=== PATIENT | female | born 1955 | race Caucasian/White ===

== ENCOUNTER 2017-07-18 04:39 | Observation (INO) | payer BC ==
[2017-07-18] MEDS ORDERED: Aspirin 81 MG Tab.Chew PO ONE (05:11)
--- NOTE | 2017-07-18 05:11 | EDM.PDOC ---
ED HPI GENERAL MEDICAL PROBLEM - General Chief Complaint: Chest Pain Stated Complaint: CHEST PAINS Time Seen by Provider: 07/18/17 05:08 - History of Present Illness INITIAL COMMENTS - FREE TEXT/NARRATIVE: HISTORY AND PHYSICAL: History of present illness: Patient's a 62-year-old female with history of hypertension diabetes who presents with concern of chest pain since vaguely described the last approximately 1 hour she equivocates regarding associated shortness of breath she denies palpitations diaphoresis nausea or vomiting. Review of systems: As per history of present illness and below otherwise all systems reviewed and negative. Past medical history: As per history of present illness and as reviewed below otherwise noncontributory. Surgical history: As per history of present illness and as reviewed below otherwise noncontributory. Social history: No reported history of drug or alcohol abuse. Family history: As per history of present illness and as reviewed below otherwise noncontributory. Physical exam: HEENT: Atraumatic, normocephalic, pupils reactive, negative for conjunctival pallor or scleral icterus, mucous membranes moist, throat clear, neck supple, nontender, trachea midline. Lungs: Clear to auscultation, breath sounds equal bilaterally, chest nontender. Heart: S1S2, regular, negative for clicks, rubs, or JVD. Abdomen: Soft, nondistended, nontender. Negative for masses or hepatosplenomegaly. Negative for costovertebral tenderness. Pelvis: Stable nontender. Genitourinary: Deferred. Rectal: Deferred. Extremities: Atraumatic, negative for cords or calf pain. Neurovascular unremarkable. Neuro: Awake, alert, oriented. Cranial nerves II through XII unremarkable. Cerebellum unremarkable. Motor and sensory unremarkable throughout. Exam nonfocal. Diagnostics: CBC CMP troponin PT/INR chest x-ray EKG Therapeutics: IV O2 monitor aspirin 324 mg by mouth Impression: #1 chest pain #2 history diabetes #3 history of hypertension Definitive disposition and diagnosis as appropriate pending reevaluation and review of above. chest Pain Score (Numeric/FACES): 8 - Related Data Allergies Allergy/AdvReac Type Severity Reaction Status Date / Time esomeprazole magnesium Allergy Headache Verified 07/18/17 04:52 [From Nexium] Home Meds: Home Meds Hydrochlorothiazide/Lisinopril [Lisinopril-HCTZ 10-12.5 MG] 1 tab PO DAILY 12/08 [History] Sertraline [Zoloft] 50 mg PO DAILY 12/08/13 [History] metFORMIN [Glucophage] 500 mg PO BIDAC 12/08/13 [History] Acetaminophen/Diphenhydramine [Tylenol Pm Ex-Strength Caplet] 1 each PO ASDIRECTED 10/18/15 [History] Aspirin [Halfprin] 81 mg PO BRK 10/18/15 [History] Calcium Carbonate [Calcium] 600 mg PO BID 10/18/15 [History] Ergocalciferol (Vitamin D2) [Vitamin D] 400 unit PO BID 10/18/15 [History] Lansoprazole [Prevacid] 15 mg PO BID 10/18/15 [History] Losartan Potassium 25 mg PO DAILY 10/18/15 [History] atorvaSTATin [Lipitor] 10 mg PO BEDTIME 10/18/15 [History] Past Medical History - Past Health History Medical/Surgical History: Denies Medical/Surgical History HEENT History: Reports: None Cardiovascular History: Reports: High Cholesterol, Hypertension Respiratory History: Reports: Sleep Apnea Gastrointestinal History: Reports: GERD 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 History: Reports: None Endocrine/Metabolic History: Reports: Diabetes, Type II, Obesity/BMI 30+ Dermatologic History: Reports: None - Infectious Disease History Infectious Disease History: Reports: Chicken Pox - Past Surgical History HEENT Surgical History: Reports: Oral Surgery, Tonsillectomy GI Surgical History: Reports: Appendectomy, Cholecystectomy Female Surgical History: Reports: Section, Hysterectomy Musculoskeletal Surgical History: Reports: Arthroscopic Knee, Joint Replacement , Shoulder Surgery Dermatological Surgical History: Reports: Plastic Surgical Reconstruction/Repair Social & Family History - Family History Family Medical History: Noncontributory - Tobacco Use Smoking Status *Q: Never Smoker - Alcohol Use Days Per Week of Alcohol Use: 0 - Recreational Drug Use Recreational Drug Use: No ED ROS GENERAL - Review of Systems Review Of Systems: ROS reveals no pertinent complaints other than HPI. ED EXAM, GENERAL - Physical Exam Exam: See Below (See dictated) Course - Vital Signs Last Recorded V/S: Last Vital Signs Temp 36.6 C 07/18/17 04:39 Pulse 92 07/18/17 04:39 Resp 20 07/18/17 04:39 BP 158/96 H 07/18/17 04:39 Pulse Ox 96 07/18/17 04:39 - Orders/Labs/Meds Orders: Active Orders 24 hr Category Date Time Status EKG Documentation Completion [RC] STAT Care 07/18/17 04:45 Active Chest 1V Frontal [CR] Stat Exams 07/18/17 04:45 Ordered COMPREHENSIVE METABOLIC PN,CMP [CHEM] Stat Lab 07/18/17 04:50 Received INR,PT,PROTHROMBIN TIME [COAG] Stat Lab 07/18/17 04:50 Received TROPONIN I [CHEM] Stat Lab 07/18/17 04:50 Received Labs: Laboratory Tests 07/18/17 Range/Units 04:50 WBC 9.58 (4.0-11.0) K/uL RBC 4.43 (4.30-5.90) M/uL Hgb 12.6 (12.0-16.0) g/dL Hct 37.9 (36.0-46.0) % MCV 85.6 (80.0-98.0) fL MCH 28.4 (27.0-32.0) pg MCHC 33.2 (31.0-37.0) g/dL RDW Std Deviation 42.4 (28.0-62.0) fl RDW Coeff of Yvonne 14 (11.0-15.0) % Plt Count 284 (150-400) K/uL MPV 10.10 (7.40-12.00) fL Neut % (Auto) 47.8 L (48.0-80.0) % Lymph % (Auto) 38.0 (16.0-40.0) % Webb % (Auto) 9.0 (0.0-15.0) % Eos % (Auto) 4.6 (0.0-7.0) % Baso % (Auto) 0.6 (0.0-1.5) % Neut # (Auto) 4.6 (1.4-5.7) K/uL Lymph # (Auto) 3.6 H (0.6-2.4) K/uL Webb # (Auto) 0.9 H (0.0-0.8) K/uL Eos # (Auto) 0.4 (0.0-0.7) K/uL Baso # (Auto) 0.1 (0.0-0.1) K/uL Nucleated RBC % 0.0 /100WBC Nucleated RBCs # 0 K/uL Departure - Departure Time of Disposition: 05:09 Disposition: Refer to Observation Condition: Good Clinical Impression: Chest pain, Diabetes, Hypertension - Discharge Information - My Orders Last 24 Hours: My Active Orders 07/18/17 04:45 EKG Documentation Completion [RC] STAT Chest 1V Frontal [CR] Stat 07/18/17 04:50 COMPREHENSIVE METABOLIC PN,CMP [CHEM] Stat INR,PT,PROTHROMBIN TIME [COAG] Stat TROPONIN I [CHEM] Stat - Assessment/Plan Last 24 Hours: My Active Orders 07/18/17 04:45 EKG Documentation Completion [RC] STAT Chest 1V Frontal [CR] Stat 07/18/17 04:50 COMPREHENSIVE METABOLIC PN,CMP [CHEM] Stat INR,PT,PROTHROMBIN TIME [COAG] Stat TROPONIN I [CHEM] Stat
[2017-07-18 05:25] LABS: CHLORIDE,CL 106 mmol/L (98-110); SODIUM,NA 140 mmol/L (136-146)
[2017-07-18] MEDS: Insulin Aspart 100 Units/ML 3 ML Pen SUBCUT SCH ×3 (06:41→17:38)
[2017-07-18] MEDS ORDERED: Lisinopril 10 MG Tab PO SCH (09:00)
[2017-07-18] MEDS ORDERED: Hydrochlorothiazide 12.5 MG Cap PO SCH (09:00)
[2017-07-18] MEDS ORDERED: Losartan 50 MG Tab PO SCH (09:00)
[2017-07-18] MEDS ORDERED: Sertraline 50 MG Tab PO SCH (09:00)
--- NOTE | 2017-07-18 11:15 | PCM.HP ---
<Mc Rey Z - Last Filed: 07/20/17 09:42> H&P History of Present Illness - General Date of Service: 07/18/17 Admit Problem/Dx: Admission Diagnosis/Problem Admission Diagnosis/Problem Chest pain - History of Present Illness Initial Comments - Free Text/Narative: 62 year old female presenting with 2 week history of chest discomfort/pain along with diaphoresis. Patient states symptoms start 2 weeks back when she was in [employer] with her son and ended up having chest pressure and discomfort after walking around, she became diaphoretic and needed to sit. This episode lasted 30 mins and went away. Patient then had another episode last week at [employer] when helping out, again similar pain/discomfort and length of symptoms. Then last night patient stated she was watching her sons dog and at 3 am the dog woke her up to go outside and patient at that point experience chest pressure, diaphoresis that last between 45min to 1 hour. Patient does have a significant pmh of a previous IA based upon her EKG. Pt states there was an episode of chest pain discomfort more then 7 years ago for which she went into the ED but was released without an diagnosis of IA. Discharge Summary Date of admission: 07/18/2017 Date of discharge: 07/18/2017 Admitting diagnosis: #1. Chest pain/pressure, diaphoresis secondary to ACS rule out #2. Past medical history of IA appreciated on EKG #3. #4. #5. Discharge diagnoses: #1. ACS ruled out likely stable angina #2. Past medical history of IA appreciated on EKG #3. #4. #5. Consultations: None Procedures: None Hospitalization course: Patient was admitted to observation secondary to ACS rule out, troponins were drawn 3 all of which were negative, patient's labs were within normal limit. Patient did not have any further chest pain or discomfort during her observation stay. And once troponins 3 were all negative patient was discharged with instructions to follow-up with her primary care physician, as well as given a prescription for a cardiac stress test to be done with cardiology here in [place]. Patient has an appointment with cardiology on 23 July. Disposition on discharge: Home Condition on discharge: Stable Discharge medications: Continuation of home medication Follow-up instructions: Cardiac stress test outpatient, follow-up with primary care physician. chest Pain Score (Numeric/FACES): 8 - Related Data Allergies/Adverse Reactions: Allergies Allergy/AdvReac Type Severity Reaction Status Date / Time esomeprazole magnesium Allergy Headache Verified 07/18/17 04:52 [From Nexium] Home Medications: Home Meds Hydrochlorothiazide/Lisinopril [Lisinopril/HCTZ 10-12.5 MG] 12.5 mg PO DAILY 03/14 [History] Sertraline [Zoloft] 50 mg PO DAILY 12/08/13 [History] metFORMIN [Glucophage] 1,000 mg PO BIDAC 12/08/13 [History] Acetaminophen/Diphenhydramine [Tylenol Pm Ex-Strength Caplet] 1 each PO ASDIRECTED 10/18/15 [History] Aspirin [Halfprin] 81 mg PO DAILY 10/18/15 [History] Calcium Carbonate [Calcium] 600 mg PO BID 10/18/15 [History] Ergocalciferol (Vitamin D2) [Vitamin D] 400 unit PO BID 10/18/15 [History] Lansoprazole [Prevacid] 15 mg PO BID 10/18/15 [History] Losartan Potassium 25 mg PO DAILY 10/18/15 [History] atorvaSTATin [Lipitor] 10 mg PO BEDTIME 10/18/15 [History] Past Medical History - Past Health History Medical/Surgical History: Denies Medical/Surgical History HEENT History: Reports: None Cardiovascular History: Reports: High Cholesterol, Hypertension Respiratory History: Reports: Sleep Apnea Gastrointestinal History: Reports: GERD 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 History: Reports: None Endocrine/Metabolic History: Reports: Diabetes, Type II, Obesity/BMI 30+ Dermatologic History: Reports: None - Infectious Disease History Infectious Disease History: Reports: Chicken Pox - Past Surgical History HEENT Surgical History: Reports: Oral Surgery, Tonsillectomy GI Surgical History: Reports: Appendectomy, Cholecystectomy Female Surgical History: Reports: Section, Hysterectomy Musculoskeletal Surgical History: Reports: Arthroscopic Knee, Joint Replacement , Shoulder Surgery Other Musculoskeletal Surgeries/Procedures:: Left Knee Dermatological Surgical History: Reports: Plastic Surgical Reconstruction/Repair Social & Family History - Family History Family Medical History: Noncontributory - Tobacco Use Smoking Status *Q: Never Smoker - Caffeine Use Caffeine Use: Reports: Coffee - Alcohol Use Days Per Week of Alcohol Use: 0 - Recreational Drug Use Recreational Drug Use: No H&P Review of Systems - Review of Systems: Review Of Systems: ROS reveals no pertinent complaints other than HPI. Exam - Exam Exam: See Below - Vital Signs Vital Signs: Last Vital Signs Temp 37.1 C 07/18/17 05:57 Pulse 85 07/18/17 05:57 Resp 20 07/18/17 05:57 BP 135/79 07/18/17 08:55 Pulse Ox 96 07/18/17 05:57 Weight: 127.369 kg - Exam Quality Assessment: Supplemental Oxygen General: Alert, Oriented, Cooperative HEENT: Conjunctiva Clear Neck: Supple Lungs: Clear to Auscultation Cardiovascular: Regular Rate, Regular Rhythm GI/Abdominal Exam: Normal Bowel Sounds Extremities: Normal Inspection, No Pedal Edema - Patient Data Result Diagrams: 07/18/17 04:50 07/18/17 04:50 *Q Meaningful Use (ADM) - VTE *Q VTE Criteria *Q: - Stroke *Q Stroke Criteria *Q: - AMI *Q AMI Criteria *Q: Problem List Initiated/Reviewed/Updated: Yes Orders Last 24hrs: Active Orders 24 hr Category Date Time Status Blood Glucose Check, Bedside [RC] TIDAC Care 07/18/17 06:26 Active Telemetry Monitoring [Cardiac Monitoring] [RC] Q8H Care 07/18/17 05:45 Active ADA Diabetic [[place] [employer] Diet] [DIET Diet 07/18/17 Breakfast Active ] TROPONIN I [CHEM] Q6H Lab 07/18/17 10:58 Received TROPONIN I [CHEM] Q6H Lab 07/18/17 16:50 Ordered Hydrochlorothiazide Med 07/18/17 09:00 Active 12.5 mg PO DAILY Insulin Aspart [NovoLOG] Med 07/18/17 07:30 Active See Protocol SUBCUT TIDAC Lisinopril [Prinivil] Med 07/18/17 09:00 Active 10 mg PO DAILY Losartan [Cozaar] Med 07/18/17 09:00 Active 25 mg PO DAILY Sertraline [Zoloft] Med 07/18/17 09:00 Active 50 mg PO DAILY atorvaSTATin [Lipitor] Med 07/18/17 21:00 Active 10 mg PO BEDTIME Medication Orders Atorvastatin Calcium (Lipitor) 10 mg PO BEDTIME NINO Hydrochlorothiazide (Hydrochlorothiazide) 12.5 mg PO DAILY NINO Last Admin: 07/18/17 08:55 Dose: 12.5 mg Insulin Aspart (Novolog) 0 unit SUBCUT TIDAC [facility] PRN Reason: Protocol Last Admin: 07/18/17 06:41 Dose: Not Given Lisinopril (Prinivil) 10 mg PO DAILY [facility] Last Admin: 07/18/17 08:55 Dose: 10 mg Losartan Potassium (Cozaar) 25 mg PO DAILY [facility] Last Admin: 07/18/17 08:55 Dose: 25 mg Sertraline HCl (Zoloft) 50 mg PO DAILY [facility] Last Admin: 07/18/17 08:56 Dose: 50 mg Assessment/Plan Comment:: 62 year old female presenting with typical chest pain and diaphoresis with pmh of IA seen on EKG, ACS rule out - Trops x3, CBC, CMP, Cardiac monitoring. <Isiah Kaufman - Last Filed: 07/22/17 07:32> H&P History of Present Illness - General Admit Problem/Dx: Admission Diagnosis/Problem Admission Diagnosis/Problem Chest pain Exam - Vital Signs Vital Signs: Last Vital Signs Temp 36.8 C 07/18/17 16:00 Pulse 96 07/18/17 16:00 Resp 20 07/18/17 16:00 BP 112/71 07/18/17 16:00 Pulse Ox 94 L 07/18/17 16:00 - Patient Data Result Diagrams: 07/18/17 04:50 07/18/17 04:50 *Q Meaningful Use (ADM) - VTE *Q VTE Criteria *Q: - Stroke *Q Stroke Criteria *Q: - AMI *Q AMI Criteria *Q: - Free Text/Narrative Note: I have examined the patient. I have discussed findings and treatment plan with the resident. I agree with the assessment and plan outlined in the following resident's note.
[2017-07-18] MEDS ORDERED: Acetaminophen 325 MG Tab PO ONE (16:50)
[2017-07-18 16:54] VITALS: BP 112/71
[2017-07-18] MEDS ORDERED: atorvaSTATin 10 MG Tab PO SCH (21:00)
--- NOTE | 2017-07-20 16:53 | CR ---
EXAM DATE: 07/18/17 PATIENT'S AGE: 62 Patient: EDEN VEGA Facility: [place], [place] Site . Site : [id number] Study: XRay Chest [id number] 5:10:50 AM Ordering Physician: Doctor Calvillo Final Report: INDICATION: Chest pain TECHNIQUE: Chest radiograph 1 view COMPARISON: 07/14/2016 FINDINGS: Moderate degradation of image quality noted due to body habitus. Mediastinum: The heart silhouette is normal in size and morphology. A moderate- sized gastric hernias present without interval change. Lungs: Both lungs are unremarkable in appearance. No sign of pleural effusion seen. No pneumothorax is identified. Bones and soft tissue: Suture anchors are noted in the left humeral head. IMPRESSION: 1. No acute cardiopulmonary disease is seen. Dictated by Víctor Herzog MD @ 07/18/2017 5:14:54 AM Dictated by: Víctor Herzog MD @ 07/18/2017 05:14:59 (Electronic Signature) Report Signed by Proxy. [facility]
== END 2017-07-18 18:33 | disposition home or self-care (01) ==
LOC: MW.ED 04:39 → MW.MS 05:11
PROVIDERS: ADMIT Internal Medicine; ATTEND Internal Medicine
DX: R07.89 Other chest pain (principal); R61 Generalized hyperhidrosis; I25.2 Old myocardial infarction; E78.00 Pure hypercholesterolemia, unspecified; I10 Essential (primary) hypertension; G47.30 Sleep apnea, unspecified; K21.9 Gastro-esophageal reflux disease without esophagitis; E11.9 Type 2 diabetes mellitus without complications; E66.9 Obesity, unspecified; Z68.30 Body mass index [BMI] 30.0-30.9, adult; Z88.8 Allergy status to other drugs, medicaments and biological substances; Z79.899 Other long term (current) drug therapy; Z79.84 Long term (current) use of oral hypoglycemic drugs; Z79.82 Long term (current) use of aspirin; Z90.89 Acquired absence of other organs; Z90.49 Acquired absence of other specified parts of digestive tract; Z90.710 Acquired absence of both cervix and uterus; Z96.652 Presence of left artificial knee joint
CPT/HCPCS: 71045; 80053; 82962; 84484; 85025; 85610; 93005; 99285; A9270; G0378

== ENCOUNTER 2017-07-23 10:42 | Emergency (ER) | payer BC ==
[2017-07-23] MEDS ORDERED: Sodium Chloride 0.9% 2.5 ML Syringe FLUSH PRN (10:47)
[2017-07-23] MEDS ORDERED: Sodium Chloride 0.9% 10 ML Syringe FLUSH PRN (10:47)
[2017-07-23] MEDS ORDERED: Aspirin 81 MG Tab.Chew PO ONE (10:49)
[2017-07-23] MEDS ORDERED: Nitroglycerin 0.4 MG Tab.SL SL PRN (10:49)
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
[2017-07-23] MEDS ORDERED: Nitroglycerin 2% Oint 1 GM UD Packet TOP ONE (10:51)
[2017-07-23 10:54] VITALS: BP 128/72
[2017-07-23 11:25] LABS: CHLORIDE,CL 106 mmol/L (98-110); SODIUM,NA 139 mmol/L (136-146)
--- NOTE | 2017-07-23 11:31 | CR ---
EXAMINATION: Portable chest radiograph. HISTORY: Chest pain. FINDINGS: The trachea is midline. The cardiomediastinal silhouette is within normal limits. No pulmonary infilt rates, effusions or pneumothorax. Moderate hiatal hernia. Osseous structures appear unremarkable. IMPRESSION: No acute cardiopulmonary process.
== END 2017-07-23 11:53 | disposition other institution (70) ==
LOC: MW.ED 10:42
DX: I20.0 Unstable angina (principal); E78.00 Pure hypercholesterolemia, unspecified; I10 Essential (primary) hypertension; E11.9 Type 2 diabetes mellitus without complications; Z88.8 Allergy status to other drugs, medicaments and biological substances; Z79.899 Other long term (current) drug therapy; Z79.82 Long term (current) use of aspirin; Z79.84 Long term (current) use of oral hypoglycemic drugs
CPT/HCPCS: 36415; 71045; 80053; 84484; 85025; 93005; 99285; A9270

== ENCOUNTER 2018-12-17 17:41 | Emergency (ER) | payer BC ==
[2018-12-17] MEDS ORDERED: Morphine 2 MG/ML Syringe IVPUSH ONE (17:43)
[2018-12-17] MEDS ORDERED: Sodium Chloride 0.9% 1,000 ML IV ONE (17:43)
[2018-12-17] MEDS ORDERED: Ondansetron 4 MG/2 ML SDV IVPUSH ONE (17:43)
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
[2018-12-17 18:58] VITALS: BP 125/89
[2018-12-17 19:07] LABS: CHLORIDE,CL 99 mmol/L (98-107); SODIUM,NA 136 mmol/L (136-145)
== END 2018-12-17 19:53 | disposition home or self-care (01) ==
LOC: MW.ED 17:41
DX: S80.11XA Contusion of right lower leg, initial encounter (principal); E87.6 Hypokalemia; I10 Essential (primary) hypertension; I25.2 Old myocardial infarction; J44.9 Chronic obstructive pulmonary disease, unspecified; F41.9 Anxiety disorder, unspecified; F32.9 Major depressive disorder, single episode, unspecified; E11.9 Type 2 diabetes mellitus without complications; Z79.82 Long term (current) use of aspirin; Z79.899 Other long term (current) drug therapy; Z88.8 Allergy status to other drugs, medicaments and biological substances; V89.2XXA Person injured in unspecified motor-vehicle accident, traffic, initial encounter
CPT/HCPCS: 36415; 70450; 71045; 72125; 72170; 73590; 73610; 80053; 85025; 85610; 96361; 96374; 96375; 99285; J2270; J2405; J7040; 99284

== ENCOUNTER 2019-01-04 13:21 | Emergency (ER) | payer BC, OTHER ==
[2019-01-04 14:29] LABS: BLOOD UREA NITROGEN,BUN 25 mg/dL (7.0-18.0); CARBON DIOXIDE,CO2 19.8 mmol/L (21.0-32.0); CHLORIDE,CL 106 mmol/L (98-107); GLUCOSE RANDOM 115 mg/dL (74-106); POTASSIUM,K 3.9 mmol/L (3.5-5.1); SODIUM,NA 142 mmol/L (136-145)
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
[2019-01-04 17:29] VITALS: BP 140/114; PULSE 92
== END 2019-01-04 17:27 | disposition home or self-care (01) ==
LOC: MW.ED 13:21
DX: R06.02 Shortness of breath (principal); I10 Essential (primary) hypertension; I25.2 Old myocardial infarction; K21.9 Gastro-esophageal reflux disease without esophagitis; M19.90 Unspecified osteoarthritis, unspecified site; F32.9 Major depressive disorder, single episode, unspecified; F41.9 Anxiety disorder, unspecified; E11.42 Type 2 diabetes mellitus with diabetic polyneuropathy; E66.9 Obesity, unspecified; Z68.39 Body mass index [BMI] 39.0-39.9, adult; Z88.3 Allergy status to other anti-infective agents; Z88.8 Allergy status to other drugs, medicaments and biological substances; Z79.82 Long term (current) use of aspirin; Z79.84 Long term (current) use of oral hypoglycemic drugs; Z79.899 Other long term (current) drug therapy
CPT/HCPCS: 36415; 71275; 71275-26; 80053; 85025; 85379; 93005; 99282; 99285-25

== ENCOUNTER 2019-03-19 17:33 | Emergency (ER) | payer BC ==
[2019-03-19] MEDS ORDERED: Sodium Chloride 0.9% 2.5 ML Syringe FLUSH PRN (17:48)
[2019-03-19] MEDS ORDERED: Sodium Chloride 0.9% 1,000 ML IV ONE (17:48)
[2019-03-19] MEDS ORDERED: Sodium Chloride 0.9% 10 ML Syringe FLUSH PRN (17:48)
--- NOTE | 2019-03-19 17:49 | EDM.PDOC ---
ED HPI GENERAL MEDICAL PROBLEM - General Chief Complaint: General Stated Complaint: SPOKE W/ NURSE Time Seen by Provider: 03/19/19 17:49 Source of Information: Reports: Patient History Limitations: Reports: No Limitations - History of Present Illness INITIAL COMMENTS - FREE TEXT/NARRATIVE: HISTORY AND PHYSICAL: History of present illness: Patient is a 64-year-old female presents to the ED with complaint of headache and dizziness. She states she had a left knee replacement in [place] 2 days ago. She was discharged yesterday and told she has a "low iron" and her kidney function was off. She states she woke up with the headache and is taking tylenol with little relief. She is not currently dizzy. She denies chest pain, shortness of breath, abdominal pain, nausea, vomiting, diarrhea. Review of systems: As per history of present illness and below otherwise all systems reviewed and negative. Past medical history: As per history of present illness and as reviewed below otherwise noncontributory. Surgical history: As per history of present illness and as reviewed below otherwise noncontributory. Social history: No reported history of drug or alcohol abuse. Family history: As per history of present illness and as reviewed below otherwise noncontributory. Physical exam: General: Patient sitting comfortably in no acute distress and nontoxic appearing HEENT: Atraumatic, normocephalic, pupils reactive, negative for conjunctival pallor or scleral icterus, mucous membranes moist, throat clear, neck supple, nontender, trachea midline. No meningeal signs. Lungs: Clear to auscultation, breath sounds equal bilaterally, chest nontender. Heart: S1S2, regular, negative for clicks, rubs, or overt murmur. Abdomen: Soft, nondistended, nontender. Negative for masses or hepatosplenomegaly. Negative for costovertebral tenderness. No rigidity, rebound , guarding. Pelvis: Stable nontender. Genitourinary: Deferred. Rectal: Deferred. Extremities: Atraumatic, negative for cords or calf pain. Neurovascular unremarkable. Neuro: Awake, alert, oriented. Cranial nerves II through XII unremarkable. Cerebellum unremarkable. Motor and sensory unremarkable throughout. Exam nonfocal. Notes: Diagnostics: CBC, CMP, Troponin, EKG Therapeutics: 1L NS IV 30mg Toradol IV Prescriptions: Impression: Headache Plan: Drink plenty of fluids as instructed Follow up with primary care provider Return to ED as needed as discussed Definitive disposition and diagnosis as appropriate pending reevaluation and review of above. Right Knee Pain Score (Numeric/FACES): 6 - Related Data Allergies Allergy/AdvReac Type Severity Reaction Status Date / Time VINI Inhibitors Allergy Cough Verified 03/19/19 17:42 esomeprazole magnesium Allergy Headache Verified 03/19/19 17:42 [From Nexium] Home Meds: Home Meds Aspirin 81 mg PO DAILY 01/04/19 [History] Calcium Phosphate Trib/Vit D3 [Calcium Adult Gummies] 1 tab PO DAILY 01/04/19 [ History] Cyanocobalamin/Folic AC/Vit B6 [Folbee] 1 tab PO DAILY 01/04/19 [History] Iron,Carbonyl/Ascorbic Acid [Iron 100-Vitamin C Tablet] 1 tab PO DAILY 01/04/19 [History] Multivitamin [Multi-Vitamin Daily] 1 tab PO DAILY 01/04/19 [History] Pantoprazole Sodium 40 mg PO DAILY 01/04/19 [History] Sertraline [Zoloft] 100 mg PO DAILY 01/04/19 [History] Hydrocodone/Acetaminophen [Hydrocodon-Acetaminophn 10-325] 1 each PO ASDIRECTED 03/19/19 [History] Sulfamethoxazole/Trimethoprim [Sulfamethoxazole-Tmp Ds Tablet] 1 each PO BID [History] traMADol [Ultram] 50 mg PO ASDIRECTED 03/19/19 [History] Past Medical History - Past Health History Medical/Surgical History: Denies Medical/Surgical History HEENT History: Reports: Other (See Below) Other HEENT History: wears glasses, has upper denture Cardiovascular History: Reports: Arrhythmia, Bypass, High Cholesterol, Hypertension, [place] Other Cardiovascular History: PAT, hx of [place] over 10 years ago- denies current chest pain Respiratory History: Reports: COPD, Sleep Apnea Other Respiratory History: uses CPAP Gastrointestinal History: Reports: GERD, Hiatal Hernia 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 PRINCIPAL History: Reports: Musculoskeletal History: Reports: Back Pain, Chronic, Fracture, Osteoarthritis, Other (See Below) Other Musculoskeletal History: lumbas scoliosis, arthritis of back, feet and ankles Neurological History: Reports: Neuropathy, Peripheral Psychiatric History: Reports: Anxiety, Depression Endocrine/Metabolic History: Reports: Diabetes, Type II, Obesity/BMI 30+ Hematologic History: Reports: Anemia Immunologic History: Reports: None Oncologic (Cancer) History: Reports: None Dermatologic History: Reports: None - Infectious Disease History Infectious Disease History: Reports: Chicken Pox - Past Surgical History HEENT Surgical History: Reports: Adenoidectomy, Tonsillectomy Cardiovascular Surgical History: Reports: None, Coronary Artery Bypass Respiratory Surgical History: Reports: None GI Surgical History: Reports: Appendectomy, Cholecystectomy, Colonoscopy Female Surgical History: Reports: Breast Reconstruction, Section, Hysterectomy, Salpingo-Oophorectomy Musculoskeletal Surgical History: Reports: Arthroscopic Knee, Knee Replacement, ORIF, Shoulder Surgery Other Musculoskeletal Surgeries/Procedures:: bilateral ORIF of wrists, hx of shoulder arthroscopy, left TKA, bilateral knee arthroscopies Dermatological Surgical History: Reports: Plastic Surgical Reconstruction/Repair Social & Family History - Family History Family Medical History: Noncontributory - Caffeine Use Caffeine Use: Reports: None ED ROS GENERAL - Review of Systems Review Of Systems: ROS reveals no pertinent complaints other than HPI. ED EXAM, GENERAL - Physical Exam Exam: See Below (see dictation) Course - Vital Signs Last Recorded V/S: Last Vital Signs Temp 97.9 F 03/19/19 19:32 Pulse 73 03/19/19 19:32 Resp 18 03/19/19 19:32 BP 126/64 03/19/19 19:32 Pulse Ox 97 03/19/19 19:32 - Orders/Labs/Meds Orders: Active Orders 24 hr Category Date Time Status EKG Documentation Completion [RC] STAT Care 03/19/19 17:48 Active Sodium Chloride 0.9% [Saline Flush] Med 03/19/19 17:48 Active 10 ml FLUSH ASDIRECTED PRN Sodium Chloride 0.9% [Saline Flush] Med 03/19/19 17:48 Active 2.5 ml FLUSH ASDIRECTED PRN Saline Lock Insert [OM.PC] Stat Oth 03/19/19 17:48 Ordered Medication Orders Sodium Chloride (Saline Flush) 10 ml FLUSH ASDIRECTED PRN PRN Reason: Keep Vein Open Sodium Chloride (Saline Flush) 2.5 ml FLUSH ASDIRECTED PRN PRN Reason: Keep Vein Open Labs: Laboratory Tests 03/19/19 03/19/19 03/19/19 Range/Units 17:59 17:59 17:59 WBC 8.49 (4.0-11.0) K/uL RBC 3.93 L (4.30-5.90) M/uL Hgb 10.1 L (12.0-16.0) g/dL Hct 32.7 L (36.0-46.0) % MCV 83.2 (80.0-98.0) fL MCH 25.7 L (27.0-32.0) pg MCHC 30.9 L (31.0-37.0) g/dL RDW Std Deviation 45.2 (28.0-62.0) fl RDW Coeff of Yvonne 15 (11.0-15.0) % Plt Count 189 (150-400) K/uL MPV 11.80 (7.40-12.00) fL Neut % (Auto) 68.1 (48.0-80.0) % Lymph % (Auto) 20.6 (16.0-40.0) % [place] % (Auto) 10.0 (0.0-15.0) % Eos % (Auto) 0.9 (0.0-7.0) % Baso % (Auto) 0.4 (0.0-1.5) % Neut # (Auto) 5.8 H (1.4-5.7) K/uL Lymph # (Auto) 1.8 (0.6-2.4) K/uL [place] # (Auto) 0.9 H (0.0-0.8) K/uL Eos # (Auto) 0.1 (0.0-0.7) K/uL Baso # (Auto) 0.0 (0.0-0.1) K/uL Nucleated RBC % 0.0 /100WBC Nucleated RBCs # 0 K/uL Sodium 138 (136-145) mmol/L Potassium 3.7 (3.5-5.1) mmol/L Chloride 104 (98-107) mmol/L Carbon Dioxide 23.8 (21.0-32.0) mmol/L BUN 14 (7.0-18.0) mg/dL Creatinine 0.9 (0.6-1.0) mg/dL Est Cr Clr Drug Dosing 45.96 mL/min Estimated GFR (MDRD) > 60.0 ml/min Glucose 129 H (74-106) mg/dL Calcium 9.1 (8.5-10.1) mg/dL Total Bilirubin 0.2 (0.2-1.0) mg/dL AST 34 (15-37) IU/L ALT 37 (14-63) IU/L Alkaline Phosphatase 97 (46-116) U/L Troponin I < 0.050 (0.000-0.056) ng/mL Total Protein 7.4 (6.4-8.2) g/dL Albumin 2.8 L (3.4-5.0) g/dL Globulin 4.6 H (2.6-4.0) g/dL Albumin/Globulin Ratio 0.6 L (0.9-1.6) Meds: Medications Generic Name Dose Route Start Last Admin Trade Name Freq PRN Reason Stop Dose Admin Sodium Chloride 10 ml 03/19/19 17:48 Saline Flush FLUSH ASDIRECTED PRN Keep Vein Open Sodium Chloride 2.5 ml 03/19/19 17:48 Saline Flush FLUSH ASDIRECTED PRN Keep Vein Open Discontinued Medications Generic Name Dose Route Start Last Admin Trade Name Freq PRN Reason Stop Dose Admin Sodium Chloride 1,000 mls @ 999 mls/hr 03/19/19 17:48 03/19/19 18:01 Normal Saline IV 03/19/19 18:48 999 mls/hr STAT ONE Administration Ketorolac Tromethamine 30 mg 03/19/19 18:52 03/19/19 18:57 Toradol IVPUSH 03/19/19 18:53 30 mg ONETIME ONE Administration Departure - Departure Time of Disposition: 19:37 Disposition: Home, Self-Care 01 Condition: Good Clinical Impression: Headache - Discharge Information Instructions: Tension Headache, Adult Referrals: PCP,None [Primary Care Provider] - Forms: ED Department Discharge Additional Instructions: The following information is given to patients seen in the emergency department who are being discharged to home. This information is to outline your options for follow-up care. We provide all patients seen in our emergency department with a follow-up referral. The need for follow-up, as well as the timing and circumstances, are variable depending upon the specifics of your emergency department visit. If you don't have a primary care physician on staff, we will provide you with a referral. We always advise you to contact your personal physician following an emergency department visit to inform them of the circumstance of the visit and for follow-up with them and/or the need for any referrals to a consulting specialist. The emergency department will also refer you to a specialist when appropriate. This referral assures that you have the opportunity for follow-up care with a specialist. All of these measure are taken in an effort to provide you with optimal care, which includes your follow-up. Under all circumstances we always encourage you to contact your private physician who remains a resource for coordinating your care. When calling for follow-up care, please make the office aware that this follow-up is from your recent emergency room visit. If for any reason you are refused follow-up, please contact the [facility] at and asked to speak to the emergency department charge nurse. [facility] [address] [place] [address] [id number] [address] [address] Drink plenty of fluids as instructed Follow up with primary care provider Return to ED as needed as discussed - My Orders Last 24 Hours: My Active Orders 03/19/19 17:48 EKG Documentation Completion [RC] STAT Sodium Chloride 0.9% [Saline Flush] 10 ml FLUSH ASDIRECTED PRN Sodium Chloride 0.9% [Saline Flush] 2.5 ml FLUSH ASDIRECTED PRN Saline Lock Insert [OM.PC] Stat - Assessment/Plan Last 24 Hours: My Active Orders 03/19/19 17:48 EKG Documentation Completion [RC] STAT Sodium Chloride 0.9% [Saline Flush] 10 ml FLUSH ASDIRECTED PRN Sodium Chloride 0.9% [Saline Flush] 2.5 ml FLUSH ASDIRECTED PRN Saline Lock Insert [OM.PC] Stat
[2019-03-19 18:45] LABS: BLOOD UREA NITROGEN,BUN 14 mg/dL (7.0-18.0); CARBON DIOXIDE,CO2 23.8 mmol/L (21.0-32.0); CHLORIDE,CL 104 mmol/L (98-107); GLUCOSE RANDOM 129 mg/dL (74-106); POTASSIUM,K 3.7 mmol/L (3.5-5.1); SODIUM,NA 138 mmol/L (136-145)
[2019-03-19] MEDS ORDERED: Ketorolac 30 MG/ML SDV IVPUSH ONE (18:52)
[2019-03-19 19:33] VITALS: BP 126/64; PULSE 73
== END 2019-03-19 19:46 | disposition home or self-care (01) ==
LOC: MW.ED 17:33
DX: R51 Headache (principal); I25.2 Old myocardial infarction; I10 Essential (primary) hypertension; E11.9 Type 2 diabetes mellitus without complications; E66.9 Obesity, unspecified; F32.9 Major depressive disorder, single episode, unspecified; F41.9 Anxiety disorder, unspecified; K21.9 Gastro-esophageal reflux disease without esophagitis; Z68.36 Body mass index [BMI] 36.0-36.9, adult; Z79.82 Long term (current) use of aspirin; Z79.899 Other long term (current) drug therapy; Z88.8 Allergy status to other drugs, medicaments and biological substances; Z95.1 Presence of aortocoronary bypass graft
CPT/HCPCS: 36415; 80053; 84484; 85025; 93005; 96361; 96374; 99284; J1885; J7040

== ENCOUNTER 2019-03-22 17:18 | Observation (INO) | payer BC ==
--- NOTE | 2019-03-22 18:01 | PCM.PREANE ---
Preanesthetic Assessment - Anesthesia/Transfusion/Family Hx Anesthesia History: Prior Anesthesia Reaction Family History of Anesthesia Reaction: No Transfusion History: Unknown Intubation History: Unknown - Review of Systems General: No Symptoms Pulmonary: No Symptoms Cardiovascular: No Symptoms Gastrointestinal: No Symptoms Neurological: No Symptoms Other: Reports: None - Physical Assessment Vital Signs: Last Vital Signs Temp 97.0 F 03/22/19 17:49 Pulse 63 03/22/19 17:49 Resp 18 03/22/19 17:49 BP 137/73 03/22/19 17:49 Pulse Ox Height: 5 ft Weight: 86.273 kg ASA Class: 3 Mental Status: Alert & Oriented x3 Airway Class: Mallampati = 3 Dentition: Reports: Dentures Thyro-Mental Finger Breadths: 2 Mouth Opening Finger Breadths: 2 ROM/Head Extension: Full Lungs: Clear to Auscultation, Normal Respiratory Effort Cardiovascular: Regular Rate, Regular Rhythm - Allergies Allergies/Adverse Reactions: Allergies Allergy/AdvReac Type Severity Reaction Status Date / Time VINI Inhibitors Allergy Cough Verified 03/22/19 18:36 esomeprazole magnesium Allergy Headache Verified 03/22/19 18:36 [From Nexium] - Anesthesia Plan Free Text/Narrative:: I was notified by Dr Olivier of this patient prior to leaving his clinic late this afternoon. After reviewing the anesthesia progress note from [facility]; it appears spinal placement was difficult are required at least two attempts. Success was achieved with 22g Whitarce needle. It is also noted from [facility] she has a history of scoliosis. Pt states that her headache is a 10/10 while standing and 5/10 while lying flat. Onset was approximately 48hrs post spinal placement; as the patient had surgery on 03/17/19 and reported awakening in the morning of 03/19/19 with this debilitating headache. Pt describes her headache as occipital and frontal pain constant pain. She denies fever. She also describes some intermittent auditory changes (FLUID IN THE EAR SOUND). I spoke with Dr Kaufman and explained that we need to rule out other etiologies before proceeding with epidural blood patch. Hilda RN is also attempting to contact the operating hospital so we can make sure the patient did not receive any anticoagulants post-op. I asked the patient if she remembered taking any anticoagulants and she does not remember for sure. I explained to the patient that if all other etiologies are ruled out then we would proceed with epidural blood patch. I explained an epidural blood patch to the patient as well as the risks and benefits. At this time the patient agrees with the current treatment plan. - Acknowledgements Pt an Appropriate Candidate for the Planned Anesthesia: Yes Alternatives and Risks of Anesthesia Discussed w Pt/Guardian: Yes Pt/Guardian Understands and Agrees with Anesthesia Plan: Yes PreAnesthesia Questionnaire - Past Health History Medical/Surgical History: Denies Medical/Surgical History HEENT History: Reports: Other (See Below) Other HEENT History: wears glasses, has upper denture Cardiovascular History: Reports: Arrhythmia, Bypass, High Cholesterol, Hypertension, [place] Other Cardiovascular History: PAT, hx of [place] over 10 years ago- denies current chest pain Respiratory History: Reports: COPD, Sleep Apnea Other Respiratory History: uses CPAP Gastrointestinal History: Reports: GERD, Hiatal Hernia Genitourinary History: Reports: None [employer] History: Reports: Musculoskeletal History: Reports: Fracture, Osteoarthritis, Other (See Below) Other Musculoskeletal History: lumbas scoliosis, arthritis of back, feet and ankles Neurological History: Reports: Neuropathy, Peripheral Psychiatric History: Reports: Anxiety, Depression Endocrine/Metabolic History: Reports: Diabetes, Type II, Obesity/BMI 30+ Hematologic History: Reports: Anemia Immunologic History: Reports: None Oncologic (Cancer) History: Reports: None Dermatologic History: Reports: None - Infectious Disease History Infectious Disease History: Reports: Chicken Pox - Past Surgical History HEENT Surgical History: Reports: Adenoidectomy, Tonsillectomy Cardiovascular Surgical History: Reports: None, Coronary Artery Bypass Respiratory Surgical History: Reports: None GI Surgical History: Reports: Appendectomy, Cholecystectomy, Colonoscopy Female Surgical History: Reports: Breast Reconstruction, Section, Hysterectomy, Salpingo-Oophorectomy Musculoskeletal Surgical History: Reports: Arthroscopic Knee, Knee Replacement, ORIF, Shoulder Surgery Other Musculoskeletal Surgeries/Procedures:: bilateral ORIF of wrists, hx of shoulder arthroscopy, left TKA, bilateral knee arthroscopies Dermatological Surgical History: Reports: Plastic Surgical Reconstruction/Repair - SUBSTANCE USE Smoking Status *Q: Never Smoker Second Hand Smoke Exposure: Yes Recreational Drug Use History: No - HOME MEDS Home Medications: Home Meds Aspirin 81 mg PO DAILY 01/04/19 [History] Calcium Phosphate Trib/Vit D3 [Calcium Adult Gummies] 1 tab PO DAILY 01/04/19 [ History] Cyanocobalamin/Folic AC/Vit B6 [Folbee] 1 tab PO DAILY 01/04/19 [History] Iron,Carbonyl/Ascorbic Acid [Iron 100-Vitamin C Tablet] 1 tab PO DAILY 01/04/19 [History] Multivitamin [Multi-Vitamin Daily] 1 tab PO BID 01/04/19 [History] Pantoprazole Sodium 40 mg PO DAILY 01/04/19 [History] Sertraline [Zoloft] 100 mg PO DAILY 01/04/19 [History] Hydrocodone/Acetaminophen [Hydrocodon-Acetaminophn 10-325] 1 each PO ASDIRECTED PRN 03/19/19 [History] Sulfamethoxazole/Trimethoprim [Sulfamethoxazole-Tmp Ds Tablet] 1 each PO BID [History] traMADol [Ultram] 50 mg PO ASDIRECTED PRN 03/19/19 [History] Calcium Carbonate [Calcium] 1,500 mg PO DAILY 03/22/19 [History] Cholecalciferol (Vitamin D3) [Vitamin D3] 1 cap PO DAILY 03/22/19 [History] Sennosides/Docusate Sodium [Senna Plus Tablet] 2 tab PO DAILY 03/22/19 [History] Thiamine HCl [Vitamin B-1] 1 tab PO DAILY 03/22/19 [History] atorvaSTATin [Lipitor] 10 mg PO DAILY 03/22/19 [History]
[2019-03-22] MEDS ORDERED: Sodium Chloride 0.9% 10 ML SDV IV PRN (18:33)
[2019-03-22] MEDS ORDERED: Sodium Chloride 0.9% 2.5 ML Syringe FLUSH PRN (18:33)
[2019-03-22] MEDS ORDERED: Sodium Chloride 0.9% 10 ML Syringe FLUSH PRN (18:33)
[2019-03-22] MEDS ORDERED: Ondansetron 4 MG/2 ML SDV IVPUSH PRN (18:39)
[2019-03-22] MEDS ORDERED: Acetaminophen 325 MG Tab PO PRN (18:39)
[2019-03-22] MEDS ORDERED: Ondansetron 4 MG Tab.DIS PO PRN (18:39)
--- NOTE | 2019-03-22 19:16 | PCM.HP.2 ---
H&P History of Present Illness - General Date of Service: 03/22/19 Admit Problem/Dx: Admission Diagnosis/Problem Admission Diagnosis/Problem Headache - History of Present Illness Initial Comments - Free Text/Narative: 64 y/o female here for intractable headache. She was directly admitted from Dr. Olivier's clinic due to an intractable headache that started on Thursday after she underwent a left total knee replacement in [place] by Dr. Ludwig. Patient states she underwent an epidural for her surgery. Patient states she called [place] about the headache and was instructed to stop her pain medication and start acetaminophen. She rates the pain 15/10, constant. Worse when standing and moving around. Denies any vertigo, vomiting. No neurological deficits. Able to ambulate. She has a history of migraines but states has not had a migraine in over a year and this is different from her usual migraines. Denies any vomiting, chest pain, dyspnea, abdominal pain, dysuria, diarrhea. No saddle anesthesia or incontinence. Headache Pain Score (Numeric/FACES): 15 - Related Data Allergies/Adverse Reactions: Allergies Allergy/AdvReac Type Severity Reaction Status Date / Time VINI Inhibitors Allergy Cough Verified 03/22/19 18:36 esomeprazole magnesium Allergy Headache Verified 03/22/19 18:36 [From Nexium] Home Medications: Home Meds Aspirin 81 mg PO DAILY 01/04/19 [History] Calcium Phosphate Trib/Vit D3 [Calcium Adult Gummies] 1 tab PO DAILY 01/04/19 [ History] Cyanocobalamin/Folic AC/Vit B6 [Folbee] 1 tab PO DAILY 01/04/19 [History] Iron,Carbonyl/Ascorbic Acid [Iron 100-Vitamin C Tablet] 1 tab PO DAILY 01/04/19 [History] Multivitamin [Multi-Vitamin Daily] 1 tab PO BID 01/04/19 [History] Pantoprazole Sodium 40 mg PO DAILY 01/04/19 [History] Sertraline [Zoloft] 100 mg PO DAILY 01/04/19 [History] Hydrocodone/Acetaminophen [Hydrocodon-Acetaminophn 10-325] 1 each PO ASDIRECTED PRN 03/19/19 [History] Sulfamethoxazole/Trimethoprim [Sulfamethoxazole-Tmp Ds Tablet] 1 each PO BID [History] traMADol [Ultram] 50 mg PO ASDIRECTED PRN 03/19/19 [History] Calcium Carbonate [Calcium] 1,500 mg PO DAILY 03/22/19 [History] Cholecalciferol (Vitamin D3) [Vitamin D3] 1 cap PO DAILY 03/22/19 [History] Sennosides/Docusate Sodium [Senna Plus Tablet] 2 tab PO DAILY 03/22/19 [History] Thiamine HCl [Vitamin B-1] 1 tab PO DAILY 03/22/19 [History] atorvaSTATin [Lipitor] 10 mg PO DAILY 03/22/19 [History] Past Medical History - Past Health History Medical/Surgical History: Denies Medical/Surgical History HEENT History: Reports: Other (See Below) Other HEENT History: wears glasses, has upper denture Cardiovascular History: Reports: Arrhythmia, Bypass, High Cholesterol, Hypertension, PA Other Cardiovascular History: PAT, hx of PA over 10 years ago- denies current chest pain Respiratory History: Reports: COPD, Sleep Apnea Other Respiratory History: uses CPAP Gastrointestinal History: Reports: GERD, Hiatal Hernia Genitourinary History: Reports: None WELL CLEANER History: Reports: Musculoskeletal History: Reports: Fracture, Osteoarthritis, Other (See Below) Other Musculoskeletal History: lumbas scoliosis, arthritis of back, feet and ankles Neurological History: Reports: Neuropathy, Peripheral Psychiatric History: Reports: Anxiety, Depression Endocrine/Metabolic History: Reports: Diabetes, Type II, Obesity/BMI 30+ Hematologic History: Reports: Anemia Immunologic History: Reports: None Oncologic (Cancer) History: Reports: None Dermatologic History: Reports: None - Infectious Disease History Infectious Disease History: Reports: Chicken Pox - Past Surgical History HEENT Surgical History: Reports: Adenoidectomy, Tonsillectomy Cardiovascular Surgical History: Reports: None, Coronary Artery Bypass Respiratory Surgical History: Reports: None GI Surgical History: Reports: Appendectomy, Cholecystectomy, Colonoscopy Female Surgical History: Reports: Breast Reconstruction, Section, Hysterectomy, Salpingo-Oophorectomy Musculoskeletal Surgical History: Reports: Arthroscopic Knee, Knee Replacement, ORIF, Shoulder Surgery Other Musculoskeletal Surgeries/Procedures:: bilateral ORIF of wrists, hx of shoulder arthroscopy, left TKA, bilateral knee arthroscopies Dermatological Surgical History: Reports: Plastic Surgical Reconstruction/Repair Social & Family History - Family History Family Medical History: Noncontributory - Tobacco Use Smoking Status *Q: Never Smoker Second Hand Smoke Exposure: Yes - Caffeine Use Caffeine Use: Reports: None - Recreational Drug Use Recreational Drug Use: No H&P Review of Systems - Review of Systems: Review Of Systems: ROS reveals no pertinent complaints other than HPI. Exam - Exam Exam: See Below - Vital Signs Vital Signs: Last Vital Signs Temp 36.1 C 03/22/19 17:49 Pulse 63 03/22/19 17:49 Resp 18 03/22/19 17:49 BP 137/73 03/22/19 17:49 Pulse Ox Weight: 86.273 kg - Exam General: Alert, Oriented, Cooperative HEENT: Pupils Equal Neck: Supple Lungs: Clear to Auscultation, Normal Respiratory Effort. No: Crackles, Wheezing Cardiovascular: Regular Rate, Regular Rhythm GI/Abdominal Exam: Normal Bowel Sounds, Soft, Non-Tender, No Distention Extremities: Normal Inspection, No Pedal Edema Skin: Warm, Dry Neuro Extensive - Mental Status: Alert, Oriented x3 Neuro Extensive - Motor, Sensory, Reflexes: CN II-XII Intact - Patient Data Result Diagrams: 03/22/19 19:13 Problem List Initiated/Reviewed/Updated: Yes Orders Last 24hrs: Active Orders 24 hr Category Date Time Status Patient Status [ADT] Routine ADT 03/22/19 18:39 Active Antiembolic Devices [RC] PER UNIT ROUTINE Care 03/22/19 18:42 Active Bedrest Bathroom Privileges [RC] ASDIRECTED Care 03/22/19 18:39 Active Oxygen Therapy [RC] PRN Care 03/22/19 18:39 Active VTE/DVT Education [RC] PER UNIT ROUTINE Care 03/22/19 18:39 Active Verify Patient Consent Obtain [RC] ASDIRECTED Care 03/22/19 18:33 Active Vital Signs [RC] Q4H Care 03/22/19 18:39 Active Heart Healthy Diet [DIET] Diet 03/22/19 Dinner Active Head wo Cont [CT] Urgent Exams 03/22/19 18:45 Ordered BASIC METABOLIC PANEL,BMP [CHEM] AM Lab 03/23/19 05:11 Ordered CBC WITH AUTO DIFF [HEME] AM Lab 03/23/19 05:11 Ordered CBC WITH AUTO DIFF [HEME] Routine Lab 03/22/19 18:33 Ordered INR,PT,PROTHROMBIN TIME [COAG] Routine Lab 03/22/19 18:33 Ordered PTT,PARTIAL THROMBOPLSTIN TIME [COAG] Routine Lab 03/22/19 18:33 Ordered Acetaminophen [Tylenol] Med 03/22/19 18:39 Active 650 mg PO Q4H PRN Morphine Med 03/22/19 18:39 Active 2 mg IVPUSH Q2H PRN Ondansetron [Zofran ODT] Med 03/22/19 18:39 Active 4 mg PO Q4H PRN Ondansetron [Zofran] Med 03/22/19 18:39 Active 4 mg IVPUSH Q4H PRN Pantoprazole [ProTONIX] Med 03/23/19 09:00 Active 40 mg PO DAILY Sertraline [Zoloft] Med 03/23/19 09:00 Active 100 mg PO DAILY Sodium Chloride 0.9% [Normal Saline] Med 03/22/19 18:33 Active 10 ml IV ASDIRECTED PRN Sodium Chloride 0.9% [Saline Flush] Med 03/22/19 18:33 Active 10 ml FLUSH ASDIRECTED PRN Sodium Chloride 0.9% [Saline Flush] Med 03/22/19 18:33 Active 2.5 ml FLUSH ASDIRECTED PRN atorvaSTATin [Lipitor] Med 03/23/19 09:00 Active 10 mg PO DAILY Medication Administration Instruction [OM.PC] Routine Oth 03/22/19 18:33 Ordered Peripheral IV Insertion Adult [OM.PC] Routine Oth 03/22/19 18:33 Ordered Sequential Compression Device [OM.PC] Per Unit Routine Oth 03/22/19 18:41 Ordered Resuscitation Status Routine Resus Stat 03/22/19 18:39 Ordered Medication Orders Acetaminophen (Tylenol) 650 mg PO Q4H PRN PRN Reason: Pain (Mild 1-3)/fever Atorvastatin Calcium (Lipitor) 10 mg PO DAILY NINO Morphine Sulfate (Morphine) 2 mg IVPUSH Q2H PRN PRN Reason: Pain (severe 7-10) Stop: 03/23/19 18:42 Ondansetron HCl (Zofran Odt) 4 mg PO Q4H PRN PRN Reason: nausea, able to take PO Ondansetron HCl (Zofran) 4 mg IVPUSH Q4H PRN PRN Reason: Nausea Pantoprazole Sodium (Protonix) 40 mg PO DAILY NINO Sertraline HCl (Zoloft) 100 mg PO DAILY NINO Sodium Chloride (Saline Flush) 10 ml FLUSH ASDIRECTED PRN PRN Reason: Keep Vein Open Sodium Chloride (Saline Flush) 2.5 ml FLUSH ASDIRECTED PRN PRN Reason: Keep Vein Open Sodium Chloride (Normal Saline) 10 ml IV ASDIRECTED PRN PRN Reason: IV Use Assessment/Plan Comment:: A: 1. Intractable headache 2. PMH Hypertension, dyslipidemia P: 1. Intractable headache likely 2/2 to her recent epidural. Anesthesia is on board. Ordered Morphine for headache control. Will get CT head w/o contrast. 2. PMH hypertension, dyslipidemia. will resume home medications. Dispo: 1-2 days.
[2019-03-22 19:47] LABS: BLOOD UREA NITROGEN,BUN 10 mg/dL (7.0-18.0); CARBON DIOXIDE,CO2 17.6 mmol/L (21.0-32.0); CHLORIDE,CL 104 mmol/L (98-107); GLUCOSE RANDOM 104 mg/dL (74-106); POTASSIUM,K 3.7 mmol/L (3.5-5.1); SODIUM,NA 140 mmol/L (136-145)
--- NOTE | 2019-03-22 20:03 | CT ---
Indication: Intractable headache Technique: Nonenhanced axial CT imaging through the head. Sagittal and coronal reconstructions are provided. Comparison: CT head without contrast 12/17/2018 Findings: There is no intracranial hemorrhage, edema, or mass effect. There is normal attenuation of the brain parenchyma. The ventricles are normal in size. The basal cisterns are patent. The calvarium is intact. The visualized paranasal sinuses and mastoid air cells are well aerated. Linear defect is noted through the posterior arch of C1 at its junction with the right lateral mass, likely representing incomplete fusion, stable since prior CT. Impression: No acute intracranial process. Please note that all CT scans at this facility use dose modulation, iterative reconstruction, and/or weight-based dosing when appropriate to reduce radiation dose to as low as reasonably achievable. Dictated by Dre Shabazz MD @ Mar 22 2019 7:54PM Signed by Dr. Dre Shabazz @ Mar 22 2019 8:02PM
[2019-03-22] MEDS: Morphine 4 MG/ML Syringe IVPUSH PRN (21:10)
[2019-03-23] MEDS: Morphine 4 MG/ML Syringe IVPUSH PRN ×2 (01:54→06:01)
[2019-03-23 06:36] LABS: BLOOD UREA NITROGEN,BUN 9 mg/dL (7.0-18.0); CARBON DIOXIDE,CO2 23.7 mmol/L (21.0-32.0); CHLORIDE,CL 106 mmol/L (98-107); GLUCOSE RANDOM 85 mg/dL (74-106); POTASSIUM,K 3.8 mmol/L (3.5-5.1); SODIUM,NA 139 mmol/L (136-145)
[2019-03-23] MEDS ORDERED: Morphine 2 MG/ML Syringe IVPUSH PRN (07:30)
[2019-03-23] MEDS ORDERED: atorvaSTATin 10 MG Tab PO SCH (09:00)
[2019-03-23] MEDS ORDERED: Pantoprazole 40 MG Tab.CR PO SCH (09:00)
[2019-03-23] MEDS ORDERED: Sertraline 100 MG Tab PO SCH (09:00)
--- NOTE | 2019-03-23 09:23 | PCM.SN ---
- Free Text/Narrative Note: Please see pre-anesthesia assessment for anesthesia h/p, assessment and plan. Procedure note: Epidural Blood Patch Records were obtained from [facility] that indicate no anticoagulants were used and the decision to proceed with epidural blood patch was made. Pt agrees and wishes to proceed at this time. Pt was positioned in sitting position. Betadine x 3 was applied to the low back. Sterile drapes were placed. Attempts x2 by Dr Ortega one time and by myself one time. L3-4 level, 17g Tuohy,ELIO at 8 cm. 20mL of blood was obtained from the Rt AC using sterile technique (Betadine, sterile towels, sterile gloves, and sterile syringe and needle were used). Sterile blood draw was passed sterile to Dr Ortega. 20mL of blood was injected by Dr Ortega easily through the tuohy needle. Needle was removed and patient was positioned supine. After positioning the patient states her headache feels much better, and only complains of pressure in her low back. No complications were noted throughout the procedure. Anesthesia will re-assess the patient in 2 hours. Anesthesia time: [id number]
--- NOTE | 2019-03-23 11:57 | PCM48HPAN ---
Post Anesthesia Note - EVALUATION WITHIN 48HRS OF ANESTHETIC Vital Signs in Normal Range: Yes Patient Participated in Evaluation: Yes Respiratory Function Stable: Yes Airway Patent: Yes Cardiovascular Function Stable: Yes Hydration Status Stable: Yes Pain Control Satisfactory: Yes Nausea and Vomiting Control Satisfactory: Yes Mental Status Recovered: Yes Vital Signs: Last Vital Signs Temp 98.8 F 03/23/19 11:00 Pulse 68 03/23/19 11:15 Resp 16 03/23/19 11:15 BP 115/61 03/23/19 11:15 Pulse Ox 95 03/23/19 11:15 - COMMENTS/OBSERVATIONS Free Text/Narrative:: Pt is doing well 2 hours post epidural blood patch. The patient is currently sitting with the HOB at 30 degrees and denies any headache at this time. I informed the patient to try ambulating with nursing staff and then she can be discharge from an anesthesia stand point.
[2019-03-23 13:07] VITALS: BP 131/63; PULSE 69
--- NOTE | 2019-03-23 14:15 | PCM.DCSUM1 ---
<Tim Rodriguez - Last Filed: 03/23/19 17:40> Discharge Summary - Hospital Course Free Text/Narrative:: 64 y/o female who presented as a direct admit from Dr. Olivier's clinic for intractable headache. Patient states she recently underwent a total right knee replacement in [place] and that since then she had been having an intractable headache which was different from her migraine. She was admitted for pain control. CT head w/o contrast was negative for any hemorrhage or lesions. Anesthesia was consulted who performed an epidural blood patch procedure which seemed to resolve her headache. She remained hemodynamically stable during this hospitalization. She was discharged home with instruction to follow-up with her PCP. - Discharge Data Discharge Date: 03/23/19 Discharge Disposition: Home, Self-Care 01 Condition: Good - Referral to Home Health Primary Care Physician: Jacky Olivier MD - Patient Instructions Diet: Regular Diet as Tolerated Activity: As Tolerated Notify Provider of: Fever, Increased Pain, Swelling and Redness, Nausea and/or Vomiting - Discharge Plan *PRESCRIPTION DRUG MONITORING PROGRAM REVIEWED*: Not Applicable *COPY OF PRESCRIPTION DRUG MONITORING REPORT IN PATIENT TITUS: Not Applicable Home Medications: Home Meds Aspirin 81 mg PO BEDTIME 01/04/19 [History] Calcium Phosphate Trib/Vit D3 [Calcium Adult Gummies] 1 tab PO DAILY 01/04/19 [ History] Cyanocobalamin/Folic AC/Vit B6 [Folbee] 1 tab PO DAILY 01/04/19 [History] Iron,Carbonyl/Ascorbic Acid [Iron 100-Vitamin C Tablet] 1 tab PO DAILY 01/04/19 [History] Multivitamin [Multi-Vitamin Daily] 1 tab PO BID 01/04/19 [History] Pantoprazole Sodium 40 mg PO DAILY 01/04/19 [History] Sertraline [Zoloft] 100 mg PO BEDTIME 01/04/19 [History] Hydrocodone/Acetaminophen [Hydrocodon-Acetaminophn 10-325] 1 each PO ASDIRECTED PRN 03/19/19 [History] Sulfamethoxazole/Trimethoprim [Sulfamethoxazole-Tmp Ds Tablet] 1 each PO BID [History] traMADol [Ultram] 50 mg PO ASDIRECTED PRN 03/19/19 [History] Calcium Carbonate [Calcium] 1,500 mg PO DAILY 03/22/19 [History] Cholecalciferol (Vitamin D3) [Vitamin D3] 1 cap PO DAILY 03/22/19 [History] Sennosides/Docusate Sodium [Senna Plus Tablet] 2 tab PO DAILY 03/22/19 [History] Thiamine HCl [Vitamin B-1] 1 tab PO DAILY 03/22/19 [History] atorvaSTATin [Lipitor] 10 mg PO BEDTIME 03/22/19 [History] Patient Handouts: Epidural Blood Patch for Spinal Headache, Care After Referrals: [facility] [Outside] Jacky Olivier MD [Primary Care Provider] - 04/11/19 2:00 pm - Discharge Summary/Plan Comment DC Time >30 min.: No - Patient Data Vitals - Most Recent: Last Vital Signs Temp 36.6 C 03/23/19 13:06 Pulse 69 03/23/19 13:06 Resp 16 03/23/19 13:06 BP 131/63 03/23/19 13:06 Pulse Ox 96 03/23/19 13:06 Weight - Most Recent: 86.273 kg I&O - Last 24 hours: Intake & Output 03/22/19 03/23/19 03/23/19 22:59 06:59 14:59 Intake Total 350 Output Total 500 Balance -150 Lab Results - Last 24 hrs: Laboratory Results - last 24 hr 03/22/19 03/22/19 03/22/19 Range/Units 19:13 19:13 19:13 WBC 8.30 (4.0-11.0) K/uL RBC 4.14 L (4.30-5.90) M/uL Hgb 10.6 L (12.0-16.0) g/dL Hct 33.8 L (36.0-46.0) % MCV 81.6 (80.0-98.0) fL MCH 25.6 L (27.0-32.0) pg MCHC 31.4 (31.0-37.0) g/dL RDW Std Deviation 44.6 (28.0-62.0) fl RDW Coeff of Yvonne 15 (11.0-15.0) % Plt Count 271 (150-400) K/uL MPV 10.70 (7.40-12.00) fL Neut % (Auto) 59.1 (48.0-80.0) % Lymph % (Auto) 27.3 (16.0-40.0) % Bradford % (Auto) 11.0 (0.0-15.0) % Eos % (Auto) 1.8 (0.0-7.0) % Baso % (Auto) 0.8 (0.0-1.5) % Neut # (Auto) 4.9 (1.4-5.7) K/uL Lymph # (Auto) 2.3 (0.6-2.4) K/uL Bradford # (Auto) 0.9 H (0.0-0.8) K/uL Eos # (Auto) 0.2 (0.0-0.7) K/uL Baso # (Auto) 0.1 (0.0-0.1) K/uL Nucleated RBC % 0.0 /100WBC Nucleated RBCs # 0 K/uL INR 1.04 APTT 26.6 (18.6-31.3) SEC Sodium 140 (136-145) mmol/L Potassium 3.7 (3.5-5.1) mmol/L Chloride 104 (98-107) mmol/L Carbon Dioxide 17.6 L (21.0-32.0) mmol/L BUN 10 (7.0-18.0) mg/dL Creatinine 0.8 (0.6-1.0) mg/dL Est Cr Clr Drug Dosing 51.70 mL/min Estimated GFR (MDRD) > 60.0 ml/min Glucose 104 (74-106) mg/dL Calcium 9.2 (8.5-10.1) mg/dL Total Bilirubin 0.5 (0.2-1.0) mg/dL AST 20 (15-37) IU/L ALT 29 (14-63) IU/L Alkaline Phosphatase 88 (46-116) U/L Total Protein 7.8 (6.4-8.2) g/dL Albumin 2.9 L (3.4-5.0) g/dL Globulin 4.9 H (2.6-4.0) g/dL Albumin/Globulin Ratio 0.6 L (0.9-1.6) 03/23/19 03/23/19 Range/Units 05:46 05:46 WBC 7.78 (4.0-11.0) K/uL RBC 3.64 L (4.30-5.90) M/uL Hgb 9.3 L (12.0-16.0) g/dL Hct 29.9 L (36.0-46.0) % MCV 82.1 (80.0-98.0) fL MCH 25.5 L (27.0-32.0) pg MCHC 31.1 (31.0-37.0) g/dL RDW Std Deviation 46.1 (28.0-62.0) fl RDW Coeff of Yvonne 16 H (11.0-15.0) % Plt Count 252 (150-400) K/uL MPV 10.70 (7.40-12.00) fL Neut % (Auto) 48.4 (48.0-80.0) % Lymph % (Auto) 30.7 (16.0-40.0) % Bradford % (Auto) 14.3 (0.0-15.0) % Eos % (Auto) 5.3 (0.0-7.0) % Baso % (Auto) 1.3 (0.0-1.5) % Neut # (Auto) 3.8 (1.4-5.7) K/uL Lymph # (Auto) 2.4 (0.6-2.4) K/uL Bradford # (Auto) 1.1 H (0.0-0.8) K/uL Eos # (Auto) 0.4 (0.0-0.7) K/uL Baso # (Auto) 0.1 (0.0-0.1) K/uL Nucleated RBC % 0.0 /100WBC Nucleated RBCs # 0 K/uL INR APTT (18.6-31.3) SEC Sodium 139 (136-145) mmol/L Potassium 3.8 (3.5-5.1) mmol/L Chloride 106 (98-107) mmol/L Carbon Dioxide 23.7 (21.0-32.0) mmol/L BUN 9 (7.0-18.0) mg/dL Creatinine 0.8 (0.6-1.0) mg/dL Est Cr Clr Drug Dosing 51.70 mL/min Estimated GFR (MDRD) > 60.0 ml/min Glucose 85 (74-106) mg/dL Calcium 8.6 (8.5-10.1) mg/dL Total Bilirubin (0.2-1.0) mg/dL AST (15-37) IU/L ALT (14-63) IU/L Alkaline Phosphatase (46-116) U/L Total Protein (6.4-8.2) g/dL Albumin (3.4-5.0) g/dL Globulin (2.6-4.0) g/dL Albumin/Globulin Ratio (0.9-1.6) Med Orders - Current: Current Medications Discontinued Medications Acetaminophen (Tylenol) 650 mg PO Q4H PRN PRN Reason: Pain (Mild 1-3)/fever Atorvastatin Calcium (Lipitor) 10 mg PO DAILY [facility] Last Admin: 03/23/19 11:03 Dose: Not Given Morphine Sulfate (Morphine) 2 mg IVPUSH Q2H PRN PRN Reason: Pain (severe 7-10) Stop: 03/23/19 18:42 Last Admin: 03/23/19 06:01 Dose: 2 mg Morphine Sulfate (Morphine) 2 mg IVPUSH Q2H PRN PRN Reason: Pain (severe 7-10) Stop: 03/23/19 18:42 Ondansetron HCl (Zofran Odt) 4 mg PO Q4H PRN PRN Reason: nausea, able to take PO Ondansetron HCl (Zofran) 4 mg IVPUSH Q4H PRN PRN Reason: Nausea Pantoprazole Sodium (Protonix) 40 mg PO DAILY [facility] Last Admin: 03/23/19 08:23 Dose: 40 mg Sertraline HCl (Zoloft) 100 mg PO DAILY [facility] Last Admin: 03/23/19 11:03 Dose: Not Given Sodium Chloride (Saline Flush) 10 ml FLUSH ASDIRECTED PRN PRN Reason: Keep Vein Open Sodium Chloride (Saline Flush) 2.5 ml FLUSH ASDIRECTED PRN PRN Reason: Keep Vein Open Sodium Chloride (Normal Saline) 10 ml IV ASDIRECTED PRN PRN Reason: IV Use <Isiah Kaufman - Last Filed: 03/23/19 22:41> Discharge Summary - Referral to Home Health Primary Care Physician: Jacky Olivier MD - Patient Data Vitals - Most Recent: Last Vital Signs Temp 36.6 C 03/23/19 13:06 Pulse 69 03/23/19 13:06 Resp 16 03/23/19 13:06 BP 131/63 03/23/19 13:06 Pulse Ox 96 03/23/19 13:06 I&O - Last 24 hours: Intake & Output 03/23/19 03/23/19 03/23/19 06:59 14:59 22:59 Intake Total 350 Output Total 500 Balance -150 Lab Results - Last 24 hrs: Laboratory Results - last 24 hr 03/23/19 03/23/19 Range/Units 05:46 05:46 WBC 7.78 (4.0-11.0) K/uL RBC 3.64 L (4.30-5.90) M/uL Hgb 9.3 L (12.0-16.0) g/dL Hct 29.9 L (36.0-46.0) % MCV 82.1 (80.0-98.0) fL MCH 25.5 L (27.0-32.0) pg MCHC 31.1 (31.0-37.0) g/dL RDW Std Deviation 46.1 (28.0-62.0) fl RDW Coeff of Yvonne 16 H (11.0-15.0) % Plt Count 252 (150-400) K/uL MPV 10.70 (7.40-12.00) fL Neut % (Auto) 48.4 (48.0-80.0) % Lymph % (Auto) 30.7 (16.0-40.0) % Bradford % (Auto) 14.3 (0.0-15.0) % Eos % (Auto) 5.3 (0.0-7.0) % Baso % (Auto) 1.3 (0.0-1.5) % Neut # (Auto) 3.8 (1.4-5.7) K/uL Lymph # (Auto) 2.4 (0.6-2.4) K/uL Bradford # (Auto) 1.1 H (0.0-0.8) K/uL Eos # (Auto) 0.4 (0.0-0.7) K/uL Baso # (Auto) 0.1 (0.0-0.1) K/uL Nucleated RBC % 0.0 /100WBC Nucleated RBCs # 0 K/uL Sodium 139 (136-145) mmol/L Potassium 3.8 (3.5-5.1) mmol/L Chloride 106 (98-107) mmol/L Carbon Dioxide 23.7 (21.0-32.0) mmol/L BUN 9 (7.0-18.0) mg/dL Creatinine 0.8 (0.6-1.0) mg/dL Est Cr Clr Drug Dosing 51.70 mL/min Estimated GFR (MDRD) > 60.0 ml/min Glucose 85 (74-106) mg/dL Calcium 8.6 (8.5-10.1) mg/dL Med Orders - Current: Current Medications Discontinued Medications Acetaminophen (Tylenol) 650 mg PO Q4H PRN PRN Reason: Pain (Mild 1-3)/fever Atorvastatin Calcium (Lipitor) 10 mg PO DAILY [facility] Last Admin: 03/23/19 11:03 Dose: Not Given Morphine Sulfate (Morphine) 2 mg IVPUSH Q2H PRN PRN Reason: Pain (severe 7-10) Stop: 03/23/19 18:42 Last Admin: 03/23/19 06:01 Dose: 2 mg Morphine Sulfate (Morphine) 2 mg IVPUSH Q2H PRN PRN Reason: Pain (severe 7-10) Stop: 03/23/19 18:42 Ondansetron HCl (Zofran Odt) 4 mg PO Q4H PRN PRN Reason: nausea, able to take PO Ondansetron HCl (Zofran) 4 mg IVPUSH Q4H PRN PRN Reason: Nausea Pantoprazole Sodium (Protonix) 40 mg PO DAILY [facility] Last Admin: 03/23/19 08:23 Dose: 40 mg Sertraline HCl (Zoloft) 100 mg PO DAILY [facility] Last Admin: 03/23/19 11:03 Dose: Not Given Sodium Chloride (Saline Flush) 10 ml FLUSH ASDIRECTED PRN PRN Reason: Keep Vein Open Sodium Chloride (Saline Flush) 2.5 ml FLUSH ASDIRECTED PRN PRN Reason: Keep Vein Open Sodium Chloride (Normal Saline) 10 ml IV ASDIRECTED PRN PRN Reason: IV Use - Free Text/Narrative Note: I have seen and evaluated the patient with the resident. I have discussed findings and treatment plan with the resident. I agree with the assessment and plan outlined in the following note.
== END 2019-03-23 13:25 | disposition home or self-care (01) ==
LOC: MW.MS 17:18
PROVIDERS: ADMIT Internal Medicine; ATTEND Internal Medicine
DX: R51 Headache (principal); I10 Essential (primary) hypertension; E78.5 Hyperlipidemia, unspecified; Z79.82 Long term (current) use of aspirin; Z79.899 Other long term (current) drug therapy
CPT/HCPCS: 36415; 70450; 80048; 80053; 85025; 85610; 85730; A9270; J2270; 62273; 96374; 96376; G0378; G0379

== ENCOUNTER 2022-04-07 08:05 | Emergency (ER) | payer MEDICARE, OTHER ==
[2022-04-07] MEDS ORDERED: Aspirin 81 MG Tab.Chew PO ONE (08:13)
[2022-04-07] MEDS ORDERED: Alum Hydro/Mag Hydro/Simeth XS 15 ML, Lidocaine 2% 5 ML PO ONE ×2 (08:18)
[2022-04-07] MEDS ORDERED: Famotidine 20 MG/2 ML SDV IVPUSH ONE (08:18)
[2022-04-07 09:00] LABS: CARBON DIOXIDE,CO2 23.6 mmol/L (21.0-32.0); POTASSIUM,K 4.2 mmol/L (3.5-5.1)
[2022-04-07 10:14] VITALS: BP 152/80; PULSE 68
== END 2022-04-07 10:06 | disposition home or self-care (01) ==
LOC: MW.ED 08:05
DX: R07.89 Other chest pain (principal); J44.9 Chronic obstructive pulmonary disease, unspecified; E11.9 Type 2 diabetes mellitus without complications; E66.9 Obesity, unspecified; Z68.41 Body mass index [BMI] 40.0-44.9, adult; Z88.6 Allergy status to analgesic agent; Z88.8 Allergy status to other drugs, medicaments and biological substances; Z79.899 Other long term (current) drug therapy; Z79.82 Long term (current) use of aspirin; Z90.49 Acquired absence of other specified parts of digestive tract; Z90.710 Acquired absence of both cervix and uterus; Z20.822 Contact with and (suspected) exposure to COVID-19
CPT/HCPCS: 36415; 71045; 80053; 83690; 83735; 84484; 85025; 85379; 85610; 85730; 93005; 96374; 99285; A9270; J3490; U0002

== ENCOUNTER 2022-04-23 10:42 | Emergency (ER) | payer MEDICARE, OTHER ==
[2022-04-23] MEDS ORDERED: Acetaminophen 500 MG Tab PO ONE (11:18)
[2022-04-23 14:00] VITALS: BP 132/68; PULSE 61
== END 2022-04-23 13:58 | disposition home or self-care (01) ==
LOC: MW.ED 10:42
DX: S00.33XA Contusion of nose, initial encounter (principal); I25.2 Old myocardial infarction; E78.00 Pure hypercholesterolemia, unspecified; I10 Essential (primary) hypertension; E11.9 Type 2 diabetes mellitus without complications; E66.9 Obesity, unspecified; Z88.8 Allergy status to other drugs, medicaments and biological substances; Z79.82 Long term (current) use of aspirin; Z68.41 Body mass index [BMI] 40.0-44.9, adult; Z79.899 Other long term (current) drug therapy; W18.09XA Striking against other object with subsequent fall, initial encounter
CPT/HCPCS: 70450; 73130; 73560; 99284; A9270

== ENCOUNTER 2022-04-25 07:56 | Day surgery (SDC) | payer MEDICARE, OTHER ==
[~2022-04-25 07:56] MED LIST: Lactated Ringers 1,000 ML IV SCH; cefOXitin 2 GM in Premix Bag 1 BAG IV ONE
[2022-04-25] MEDS ORDERED: Propofol 200 MG/20 ML SDV ONE (08:06)
[2022-04-25] MEDS ORDERED: fentaNYL 100 MCG/2 ML SDV ONE (08:06)
[2022-04-25] MEDS ORDERED: Lidocaine 2% 5 ML SDV ONE (08:06)
[2022-04-25] MEDS ORDERED: Lactated Ringers 1,000 ML IV SCH (10:30)
[2022-04-25 11:38] VITALS: BP 119/63; PULSE 64
== END 2022-04-25 10:55 | disposition home or self-care (01) ==
LOC: MW.SDS 07:56
PROVIDERS: ATTEND Surgery
DX: K21.9 Gastro-esophageal reflux disease without esophagitis (principal); K29.00 Acute gastritis without bleeding; K31.89 Other diseases of stomach and duodenum; K44.9 Diaphragmatic hernia without obstruction or gangrene; J20.9 Acute bronchitis, unspecified; D64.9 Anemia, unspecified; J44.9 Chronic obstructive pulmonary disease, unspecified; F41.8 Other specified anxiety disorders; I10 Essential (primary) hypertension; G47.33 Obstructive sleep apnea (adult) (pediatric); E78.00 Pure hypercholesterolemia, unspecified; E66.9 Obesity, unspecified; Z88.3 Allergy status to other anti-infective agents; Z88.8 Allergy status to other drugs, medicaments and biological substances; Z79.899 Other long term (current) drug therapy; Z79.82 Long term (current) use of aspirin; Z68.41 Body mass index [BMI] 40.0-44.9, adult; Z90.49 Acquired absence of other specified parts of digestive tract; Z98.890 Other specified postprocedural states
CPT/HCPCS: 43239; 82947; J2704; J3010; J7120; 00731